=== PATIENT | female | born 1990 | race Caucasian/White ===

== ENCOUNTER 2018-05-23 18:07 | Emergency (ER) | payer BC ==
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
[2018-05-23 19:34] VITALS: BP 150/96
== END 2018-05-23 19:34 | disposition home or self-care (01) ==
LOC: MW.ED 18:07
DX: B08.4 Enteroviral vesicular stomatitis with exanthem (principal)
CPT/HCPCS: 99282

== ENCOUNTER 2022-09-11 08:46 | Emergency (ER) | payer SELFPAY ==
[2022-09-11 09:58] LABS: CARBON DIOXIDE,CO2 27.9 mmol/L (21.0-32.0)
[2022-09-11 10:14] LABS: CORONAVIRUS COVID-19 NAA NEGATIVE (NEGATIVE); INFLUENZA A NAA NEGATIVE (NEGATIVE); INFLUENZA B NAA NEGATIVE (NEGATIVE); RESPIRATORY SYNCYTIAL VIR NAA NEGATIVE (NEGATIVE)
[2022-09-11] MEDS ORDERED: Acetaminophen 325 MG Tab PO ONE (10:26)
[2022-09-11] MEDS ORDERED: Ibuprofen 400 MG Tab PO ONE (10:26)
[2022-09-11 13:05] VITALS: BP 146/95; PULSE 70
== END 2022-09-11 13:00 | disposition home or self-care (01) ==
LOC: MW.ED 08:46
DX: R07.89 Other chest pain (principal); Z20.822 Contact with and (suspected) exposure to COVID-19; Z79.899 Other long term (current) drug therapy
CPT/HCPCS: 0241U; 36415; 71045; 80053; 84484; 84703; 85025; 99285; A9270